=== PATIENT | female | born 1950 | race Caucasian/White ===

== ENCOUNTER 2016-11-05 08:57 | Inpatient (IN) | payer OTHER, BC ==
[~2016-11-05] VITALS: Ht 157.5 cm; Wt 81.4 kg
[~2016-11-05 08:57] MED LIST: ASPIRIN EC325 MG PO; CELEBREX200 MG PO; DIOVAN HCT 31 TABLET PO; ENDOCET 5-3251 EACH PO; GLIPIZIDE XL10 MG PO; INDERAL LA120 MG PO; IRON325 M1 PO; METFORMIN HCL500 MG PO; OMEPRAZOLE20 MG PO; SENNA PLUS TAB1 EACH PO
[2016-11-05] MEDS ORDERED: TYLENOL REGULA325 MG PO (09:31)
[2016-11-05 09:32] VITALS: BP 172/88
[2016-11-05 09:39] LABS: POINT-OF-CARE METER ID UU14174212
[2016-11-05 16:34] VITALS: BP 128/71
[2016-11-05 19:35] VITALS: BP 130/66
[2016-11-05 23:35] VITALS: BP 141/66
[2016-11-05 23:58] LABS: POINT-OF-CARE METER ID UU13113712
[2016-11-06 04:00] VITALS: BP 143/66
[2016-11-06 05:37] LABS: HEMATOCRIT 31.9 % (36.0-46.0); MCV 90.9 FL (83-99)
[2016-11-06 06:02] LABS: ANION GAP 7 MEQ/L (2-14); CHLORIDE 105 MEQ/L (99-109); GFR ESTIMATE (CALCULATED) > 59 mL/min/; GLUCOSE 138 mg/dL (70-99); SAMPLE HEMOLYSIS CHECK 0; SAMPLE ICTERIC CHECK 0; SAMPLE LIPEMIA CHECK 0; SODIUM 141 MEQ/L (136-147); UREA NITROGEN (BUN) 17 mg/dL (9-23)
[2016-11-06 08:00] VITALS: BP 146/63
[2016-11-06 12:00] VITALS: BP 186/81
[2016-11-06 15:52] VITALS: BP 154/70
[2016-11-06 16:31] LABS: POINT-OF-CARE METER ID UU13113712
[2016-11-06 20:01] VITALS: BP 145/72
[2016-11-06 23:00] VITALS: BP 155/74
[2016-11-06 23:44] LABS: POINT-OF-CARE METER ID UU13113712
[2016-11-07 03:49] VITALS: BP 160/70
[2016-11-07 05:36] LABS: HEMATOCRIT 29.3 % (36.0-46.0); MCV 87.5 FL (83-99)
[2016-11-07 07:49] LABS: POINT-OF-CARE METER ID UU13113720
[2016-11-07] MEDS ORDERED: ASPIRIN EC325 MG PO (07:59)
[2016-11-07] MEDS ORDERED: IRON325 M1 PO (07:59)
[2016-11-07 08:00] VITALS: BP 172/70
[2016-11-07] MEDS ORDERED: HYDROCODON-ACE1 EAC7 PO (08:00)
[2016-11-07 12:00] VITALS: BP 147/60
[2016-11-07 12:04] LABS: POINT-OF-CARE METER ID UU14174215
== END 2016-11-07 13:37 | DRG 470 ==
LOC: 2SOUTH 08:57 → SDC 15:31 → EDSTATUS 15:31 → 2SOUTH 15:32 → 3WEST 16:11
PROVIDERS: Orthopaedic Surgery
PROC: 0SRC0J9 Replacement of Right Knee Joint with Synthetic Substitute, Cemented, Open Approach (ICD-10-PCS; principal; 2016-11-05)
DX: M17.11 Unilateral primary osteoarthritis, right knee (principal); E11.9 Type 2 diabetes mellitus without complications; I10 Essential (primary) hypertension; K21.9 Gastro-esophageal reflux disease without esophagitis; Z79.84 Long term (current) use of oral hypoglycemic drugs; Z96.652 Presence of left artificial knee joint; Z88.2 Allergy status to sulfonamides
CPT/HCPCS: 80048; 82948; 85014; 85018; J0690; J1815; J1885; J2250; J2405; J3010; J3370; J7050; S0020